=== PATIENT | female | born 1990 | race Caucasian/White ===

== ENCOUNTER 2023-06-09 20:08 | Emergency (ER) | payer MEDICAID, OTHER ==
[~2023-06-09] VITALS: Ht 172.7 cm; Wt 108.0 kg
[2023-06-09 20:55] LABS: BASO # 0.1 10^3/uL (0.0-0.2); BASO % 0.5 % (0.0-1.0); EOS # 0.1 10^3/uL (0.0-0.5); EOS % 0.7 % (0.0-3.0); HEMATOCRIT 36.8 % (36.0-47.0); HEMOGLOBIN 11.9 g/dl (12.0-15.5); LYMPH # 3.4 10^3/uL (1.5-5.0); LYMPH % 23.7 % (24.0-44.0); MEAN CORPUSCULAR HEMOGLOBIN 26.6 pg (27.0-33.0); MEAN CORPUSCULAR HGB CONC 32.3 g/dl (32.0-36.5); MEAN CORPUSCULAR VOLUME 82.3 fl (80.0-96.0); MONO # 0.7 10^3/uL (0.0-0.8); MONO % 4.9 % (2.0-8.0); NEUTROPHILS # 10.2 10^3/uL (1.5-8.5); NEUTROPHILS % 69.9 % (36.0-66.0); PLATELET COUNT, AUTOMATED 385 10^3/uL (150-450); RED BLOOD COUNT 4.47 10^6/uL (4.00-5.40); WHITE BLOOD COUNT 14.5 10^3/uL (4.0-10.0)
[2023-06-09 21:28] LABS: LIPASE 38 U/L (12-53)
[2023-06-09 21:30] LABS: ALKALINE PHOSPHATASE 100 U/L (46-116); ALT/SGPT 29 U/L (7.0-40); AST/SGOT 18 U/L (<34); BILIRUBIN,DIRECT 0.2 MG/DL (<0.4); BILIRUBIN,TOTAL 0.6 MG/DL (0.3-1.2); BLOOD UREA NITROGEN 18 MG/DL (9-23); CALCIUM LEVEL 9.3 MG/DL (8.5-10.1); CARBON DIOXIDE LEVEL 26 MMOL/L (20-31); CHLORIDE LEVEL 104 MMOL/L (98-107); CREATININE FOR GFR 0.88 MG/DL (0.55-1.30); GLOMERULAR FILTRATION RATE > 60.0 (>60); GLUCOSE, FASTING 89 MG/DL (60-100); POTASSIUM SERUM 3.8 MMOL/L (3.5-5.1); SODIUM LEVEL 139 MMOL/L (136-145); TOTAL PROTEIN 7.8 G/DL (5.7-8.2)
[2023-06-09 21:51] LABS: HCG, SERUM QUALITATIVE NEGATIVE (NEGATIVE)
[2023-06-09 22:26] VITALS: BP 159/72; TEMP 98; O2SAT 99
[2023-06-09] MEDS ORDERED: KETOROLAC 30 MG/ML 1ML VIAL IV ONE (22:30)
[2023-06-09] MEDS ORDERED: NS 1,000 ML IV ONE (22:30)
[2023-06-09] MEDS ORDERED: ISOVUE-370 76% 100ML VIAL As Ordered ONE (22:33)
[2023-06-10] MEDS ORDERED: DICY-61 PO (00:42)
== END 2023-06-10 01:13 | disposition home or self-care (01) ==
LOC: M ED 20:08
DX: K52.9 Noninfective gastroenteritis and colitis, unspecified (principal); I10 Essential (primary) hypertension; K57.30 Diverticulosis of large intestine without perforation or abscess without bleeding; N83.02 Follicular cyst of left ovary; K76.0 Fatty (change of) liver, not elsewhere classified; Z88.2 Allergy status to sulfonamides
CPT/HCPCS: 36415; 74177; 80048; 80076; 81001; 83690; 84703; 85025; 96361; 96374; 99284; J1885; Q9967

== ENCOUNTER 2023-07-15 08:47 | Inpatient (IN) | payer OTHER ==
[~2023-07-15] VITALS: Ht 172.7 cm; Wt 108.7 kg
[~2023-07-15 08:47] MED LIST: DICY-61 PO
[2023-07-15] MEDS ORDERED: ALPR0.5T3 PO (09:02)
[2023-07-15] MEDS ORDERED: TRI-TAB16 PO (09:02)
[2023-07-15] MEDS ORDERED: LISI20TA33 PO (09:02)
[2023-07-15 09:30] LABS: BASO % 0.3 % (0.0-1.0); HEMATOCRIT 39.8 % (36.0-47.0); LYMPH # 1.5 10^3/uL (1.5-5.0); LYMPH % 10.5 % (24.0-44.0); MEAN CORPUSCULAR HEMOGLOBIN 27.4 pg (27.0-33.0); MEAN CORPUSCULAR HGB CONC 32.7 g/dl (32.0-36.5); MEAN CORPUSCULAR VOLUME 83.8 fl (80.0-96.0); MONO # 0.2 10^3/uL (0.0-0.8); MONO % 1.5 % (2.0-8.0); NEUTROPHILS # 12.8 10^3/uL (1.5-8.5); NEUTROPHILS % 87.3 % (36.0-66.0); PLATELET COUNT, AUTOMATED 382 10^3/uL (150-450); RED BLOOD COUNT 4.75 10^6/uL (4.00-5.40); WHITE BLOOD COUNT 14.6 10^3/uL (4.0-10.0)
[2023-07-15 09:54] LABS: LIPASE 37 U/L (12-53)
[2023-07-15] MEDS ORDERED: NS 1,000 ML IV ONE ×2 (10:00→11:40)
[2023-07-15] MEDS ORDERED: ONDANSETRON 4MG 2ML VIAL IV ONE (10:00)
[2023-07-15] MEDS: MORPHINE 2 MG/ML 1ML VIAL IV PRN ×2 (10:02→11:08)
[2023-07-15 10:10] LABS: ALBUMIN 3.4 G/DL (3.2-5.2); ALKALINE PHOSPHATASE 74 U/L (46-116); ALT/SGPT 17 U/L (7.0-40); AST/SGOT 12 U/L (<34); BILIRUBIN,DIRECT 0.1 MG/DL (<0.4); BILIRUBIN,TOTAL 0.6 MG/DL (0.3-1.2); BLOOD UREA NITROGEN 18 MG/DL (9-23); CALCIUM LEVEL 8.6 MG/DL (8.5-10.1); CARBON DIOXIDE LEVEL 22 MMOL/L (20-31); CHLORIDE LEVEL 101 MMOL/L (98-107); CREATININE FOR GFR 0.76 MG/DL (0.55-1.30); GLOMERULAR FILTRATION RATE > 60.0 (>60); GLUCOSE, FASTING 132 MG/DL (60-100); HCG, SERUM QUALITATIVE NEGATIVE (NEGATIVE); POTASSIUM SERUM 4.7 MMOL/L (3.5-5.1); SODIUM LEVEL 135 MMOL/L (136-145); TOTAL PROTEIN 7.8 G/DL (5.7-8.2)
[2023-07-15] MEDS ORDERED: ISOVUE-370 76% 100ML VIAL As Ordered ONE (10:53)
[2023-07-15 10:56] LABS: RSV AMPLIFICATION NEGATIVE (NEGATIVE)
[2023-07-15] MEDS ORDERED: PIPERACILLIN/TAZOBACTAM SOD 4.5 GM in D5W MINI-BAG PLUS 50 ML IV ONE (11:40)
[2023-07-15] MEDS ORDERED: MORPHINE 4 MG/ML 1ML VIAL IV PRN (12:20)
[2023-07-15] MEDS ORDERED: ONDANSETRON 4MG 2ML VIAL IV PRN (12:20)
[2023-07-15] MEDS: KETOROLAC 30 MG/ML 1ML VIAL IV PRN ×2 (12:37→19:41)
[2023-07-15] MEDS ORDERED: MED REC IN PROGRESS XX SCH (12:50)
[2023-07-15] MEDS: ENOXAPARIN 40MG/0.4ML SYRINGE (J1650 PER 10MG) SC SCH (12:58)
[2023-07-15] MEDS ORDERED: MULT1TAB16 PO (13:13)
[2023-07-15] MEDS ORDERED: HOME MED LIST COMPLETE! XX SCH (13:30)
[2023-07-15] MEDS ORDERED: PANTOPRAZOLE 40MG VIAL IV SCH (14:00)
[2023-07-15 14:27] VITALS: BP 135/87; TEMP 98.1; O2SAT 100
[2023-07-15] MEDS: LR 1,000 ML IV SCH (14:46)
[2023-07-15] MEDS: PIPERACILLIN/TAZOBACTAM SOD 3.375 GM in D5W MINI-BAG PLUS 50 ML IV SCH (17:16)
[2023-07-15 20:56] VITALS: BP 137/84; TEMP 98.2; O2SAT 95
[2023-07-16] MEDS: PIPERACILLIN/TAZOBACTAM SOD 3.375 GM in D5W MINI-BAG PLUS 50 ML IV SCH ×2 (00:23→05:40)
[2023-07-16] MEDS: LR 1,000 ML IV SCH ×2 (03:30→08:20)
[2023-07-16 04:32] VITALS: BP 137/84; TEMP 97.7; O2SAT 98
[2023-07-16 05:19] LABS: BASO % 0.6 % (0.0-1.0); EOS # 0.2 10^3/uL (0.0-0.5); EOS % 2.6 % (0.0-3.0); HEMATOCRIT 32.5 % (36.0-47.0); LYMPH # 2.4 10^3/uL (1.5-5.0); LYMPH % 33.8 % (24.0-44.0); MEAN CORPUSCULAR HEMOGLOBIN 27.8 pg (27.0-33.0); MEAN CORPUSCULAR HGB CONC 31.7 g/dl (32.0-36.5); MEAN CORPUSCULAR VOLUME 87.6 fl (80.0-96.0); MONO # 0.4 10^3/uL (0.0-0.8); NEUTROPHILS # 4.1 10^3/uL (1.5-8.5); NEUTROPHILS % 56.9 % (36.0-66.0); RED BLOOD COUNT 3.71 10^6/uL (4.00-5.40); WHITE BLOOD COUNT 7.2 10^3/uL (4.0-10.0)
[2023-07-16 05:30] LABS: HEMOGLOBIN 10.3 g/dl (12.0-15.5); PLATELET COUNT, AUTOMATED 265 10^3/uL (150-450)
[2023-07-16 05:49] LABS: BLOOD UREA NITROGEN 15 MG/DL (9-23); CALCIUM LEVEL 8.1 MG/DL (8.5-10.1); CARBON DIOXIDE LEVEL 25 MMOL/L (20-31); CHLORIDE LEVEL 105 MMOL/L (98-107); CREATININE FOR GFR 0.92 MG/DL (0.55-1.30); GLOMERULAR FILTRATION RATE > 60.0 (>60); GLUCOSE, FASTING 109 MG/DL (60-100); SODIUM LEVEL 138 MMOL/L (136-145)
[2023-07-16] MEDS ORDERED: HOME MED LIST COMPLETE! XX SCH ×2 (07:50→08:15)
[2023-07-16] MEDS ORDERED: DICY1CAP8 PO (08:10)
[2023-07-16] MEDS ORDERED: DICY20TA20 PO (08:10)
[2023-07-16] MEDS ORDERED: DICY-61 PO (08:10)
[2023-07-16] MEDS: ENOXAPARIN 40MG/0.4ML SYRINGE (J1650 PER 10MG) SC SCH (09:00)
[2023-07-16] MEDS ORDERED: PANT40TA29 PO (10:54)
[2023-07-16] MEDS ORDERED: METR-265 PO (10:54)
[2023-07-16] MEDS ORDERED: CIPR-249 PO (10:54)
== END 2023-07-16 12:55 | disposition home or self-care (01) | DRG 247 ==
LOC: EDBD 08:47 → M ED 08:47 → M ED INP 12:26 → ENRESERV 13:14 → M MSPAV 14:18
PROVIDERS: ADMIT Internal Medicine Nephrology; ATTEND Internal Medicine Nephrology
DX: K56.609 Unspecified intestinal obstruction, unspecified as to partial versus complete obstruction (principal); I10 Essential (primary) hypertension; J45.909 Unspecified asthma, uncomplicated; F41.9 Anxiety disorder, unspecified; G43.909 Migraine, unspecified, not intractable, without status migrainosus; G47.33 Obstructive sleep apnea (adult) (pediatric); E66.9 Obesity, unspecified; Z88.2 Allergy status to sulfonamides; Z79.899 Other long term (current) drug therapy

== ENCOUNTER → 2023-07-18 | Outpatient (CLI) | payer OTHER ==
[~2023-07-18] MED LIST changes: +ALPR0.5T3 PO; +CIPR-249 PO; +DICY1CAP8 PO; +DICY20TA20 PO; +LISI20TA33 PO; +METR-265 PO; +MULT1TAB16 PO; +PANT40TA29 PO; +TRI-TAB16 PO
== END ==
LOC: M PLALAB 14:41
PROVIDERS: ATTEND Nurse Practitioner Family
DX: Z01.419 Encounter for gynecological examination (general) (routine) without abnormal findings (principal); R87.615 Unsatisfactory cytologic smear of cervix

== ENCOUNTER → 2023-07-25 | Outpatient (CLI) | payer OTHER | LOC: M WHC 16:00 | PROVIDERS: ATTEND Nurse Practitioner Family | DX: Z12.31 Encounter for screening mammogram for malignant neoplasm of breast (principal); Z80.3 Family history of malignant neoplasm of breast ==

== ENCOUNTER → 2023-07-25 | Outpatient (REF) | payer OTHER | LOC: M SFHCWAGY 17:36 | PROVIDERS: ATTEND Nurse Practitioner Family | DX: Z12.4 Encounter for screening for malignant neoplasm of cervix (principal) ==

== ENCOUNTER → 2023-07-28 | Outpatient (REF) | payer OTHER ==
[2023-07-28 17:07] LABS: BASO # 0.1 10^3/uL (0.0-0.2); BASO % 0.8 % (0.0-1.0); EOS # 0.2 10^3/uL (0.0-0.5); EOS % 2.7 % (0.0-3.0); HEMATOCRIT 38.1 % (36.0-47.0); HEMOGLOBIN 11.9 g/dl (12.0-15.5); LYMPH # 2.4 10^3/uL (1.5-5.0); LYMPH % 26.4 % (24.0-44.0); MEAN CORPUSCULAR HEMOGLOBIN 27.1 pg (27.0-33.0); MEAN CORPUSCULAR HGB CONC 31.2 g/dl (32.0-36.5); MEAN CORPUSCULAR VOLUME 86.8 fl (80.0-96.0); MONO # 0.5 10^3/uL (0.0-0.8); MONO % 5.7 % (2.0-8.0); NEUTROPHILS # 5.7 10^3/uL (1.5-8.5); NEUTROPHILS % 63.8 % (36.0-66.0); PLATELET COUNT, AUTOMATED 343 10^3/uL (150-450); RED BLOOD COUNT 4.39 10^6/uL (4.00-5.40)
== END ==
LOC: M LAB REF 16:19
PROVIDERS: ATTEND Family Medicine Addiction Medicine
DX: D50.9 Iron deficiency anemia, unspecified (principal)

== ENCOUNTER → 2023-08-01 | Outpatient (REF) | payer OTHER ==
[2023-08-01 14:14] LABS: THYROID STIMULATING HORMONE 0.694 uIU/ML (0.55-4.78)
[2023-08-01 14:16] LABS: ALBUMIN 3.5 G/DL (3.2-5.2); ALKALINE PHOSPHATASE 69 U/L (46-116); ALT/SGPT 22 U/L (7.0-40); AST/SGOT 18 U/L (<34); BILIRUBIN,TOTAL 0.4 MG/DL (0.3-1.2); BLOOD UREA NITROGEN 13 MG/DL (9-23); CALCIUM LEVEL 9.3 MG/DL (8.5-10.1); CARBON DIOXIDE LEVEL 29 MMOL/L (20-31); CHLORIDE LEVEL 102 MMOL/L (98-107); CHOLESTEROL LEVEL 211 MG/DL (<200); CHOLESTEROL RISK RATIO 4.19 (<5); CREATININE FOR GFR 0.78 MG/DL (0.55-1.30); GLOMERULAR FILTRATION RATE > 60.0 (>60); GLUCOSE, FASTING 94 MG/DL (60-100); HDL CHOLESTEROL 50.3 MG/DL (>40); LDL CHOLESTEROL 121.5 MG/DL (<100); NON-HDL-C 160.7 MG/DL; POTASSIUM SERUM 4.6 MMOL/L (3.5-5.1); SODIUM LEVEL 138 MMOL/L (136-145); TOTAL PROTEIN 7.7 G/DL (5.7-8.2); TRIGLYCERIDES LEVEL 196 MG/DL (<150)
== END ==
LOC: M LAB REF 11:38
PROVIDERS: ATTEND Family Medicine Addiction Medicine
DX: I10 Essential (primary) hypertension (principal)

== ENCOUNTER → 2023-08-02 | Outpatient (CLI) | payer OTHER | LOC: M RAD 09:12 | PROVIDERS: ATTEND Family Medicine Addiction Medicine | DX: R05.3 Chronic cough (principal) ==

== ENCOUNTER → 2023-08-22 | Outpatient (CLI) | payer OTHER ==
[~2023-08-22] MED LIST changes: +ALBU8.5H; +VANC125C3 PO
== END ==
LOC: M PLAIMG 09:31
PROVIDERS: ATTEND Family Medicine Addiction Medicine
DX: S09.90XA Unspecified injury of head, initial encounter (principal); X58.XXXA Exposure to other specified factors, initial encounter; Y92.9 Unspecified place or not applicable; Y93.9 Activity, unspecified; Y99.9 Unspecified external cause status

== ENCOUNTER 2023-09-04 09:11 | Emergency (ER) | payer OTHER ==
[~2023-09-04] VITALS: Ht 172.7 cm; Wt 105.6 kg
[2023-09-04 09:12] VITALS: TEMP 97.6
[2023-09-04 10:13] LABS: BASO # 0.1 10^3/uL (0.0-0.2); BASO % 0.4 % (0.0-1.0); EOS # 0.2 10^3/uL (0.0-0.5); EOS % 1.1 % (0.0-3.0); HEMATOCRIT 37.7 % (36.0-47.0); HEMOGLOBIN 12.2 g/dl (12.0-15.5); LYMPH # 2.3 10^3/uL (1.5-5.0); MEAN CORPUSCULAR HGB CONC 32.4 g/dl (32.0-36.5); MEAN CORPUSCULAR VOLUME 86.7 fl (80.0-96.0); MONO # 0.6 10^3/uL (0.0-0.8); MONO % 3.7 % (2.0-8.0); NEUTROPHILS % 79.5 % (36.0-66.0); PLATELET COUNT, AUTOMATED 362 10^3/uL (150-450); RED BLOOD COUNT 4.35 10^6/uL (4.00-5.40); WHITE BLOOD COUNT 15.1 10^3/uL (4.0-10.0)
[2023-09-04 10:33] LABS: INR 1.02; PROTHROMBIN TIME 13.1 SECONDS (12.5-14.5)
[2023-09-04 10:34] LABS: PARTIAL THROMBOPLASTIN TIME 27.8 SECONDS (24.8-34.2)
[2023-09-04] MEDS ORDERED: ONDANSETRON 4MG 2ML VIAL IV ONE ×2 (10:45→16:50)
[2023-09-04] MEDS ORDERED: NS 1,000 ML IV ONE ×2 (10:45→13:45)
[2023-09-04 10:49] LABS: RSV AMPLIFICATION NEGATIVE (NEGATIVE)
[2023-09-04] MEDS ORDERED: VANCOMYCIN ORAL SOL 250MG/5ML ORAL SYRINGE PO ONE (12:00)
[2023-09-04] MEDS ORDERED: ISOVUE-370 76% 100ML VIAL As Ordered ONE (13:48)
[2023-09-04] MEDS: MORPHINE 2 MG/ML 1ML VIAL IV PRN ×2 (14:18→16:59)
[2023-09-04] MEDS ORDERED: PERC5TAB12 PO (19:05)
[2023-09-04] MEDS ORDERED: VANC125C3 PO (19:05)
[2023-09-04] MEDS ORDERED: ONDA4TAB6 PO (19:05)
[2023-09-04 19:28] VITALS: BP 141/79; O2SAT 98
[2023-09-05 10:02] LABS: BLOOD UREA NITROGEN 12 MG/DL (7-21); CALCIUM LEVEL 9.9 MG/DL (8.4-10.2); CARBON DIOXIDE LEVEL 21 MEQ/L (22-30); CHLORIDE LEVEL 100 MEQ/L (98-107); CREATININE FOR GFR 0.7 MG/DL (0.7-1.5); GLOMERULAR FILTRATION RATE > 60.0 (>60); GLUCOSE, FASTING 100 MG/DL (70-99); POTASSIUM SERUM 4.6 MEQ/L (3.6-5.0); SODIUM LEVEL 135 MEQ/L (134-153)
[2023-09-05 10:03] LABS: ALBUMIN 4.4 G/DL (3.9-5.0); ALKALINE PHOSPHATASE 82 U/L (35-104); ALT/SGPT 16 U/L (1-33); AST/SGOT 21 U/L (5-40); BILIRUBIN,DIRECT < 0.2 MG/DL (0.1-0.4); BILIRUBIN,TOTAL < 0.7 MG/DL (0.2-1.3); LIPASE 38 U/L (13-60)
== END 2023-09-04 19:30 | disposition home or self-care (01) ==
LOC: M ED 09:11
DX: K52.21 Food protein-induced enterocolitis syndrome (principal); I10 Essential (primary) hypertension; K21.9 Gastro-esophageal reflux disease without esophagitis; Z87.19 Personal history of other diseases of the digestive system; Z88.2 Allergy status to sulfonamides; Z79.52 Long term (current) use of systemic steroids; Z79.811 Long term (current) use of aromatase inhibitors; Z79.899 Other long term (current) drug therapy
CPT/HCPCS: 74177; 80047; 80048; 80076; 83605; 83690; 84702; 85025; 85610; 85730; 87507; 87631; 93041; 96361; 96374; 96375; 96376; 99285; J2405; Q9967

== ENCOUNTER 2023-09-15 07:26 | Day surgery (SDC) | payer OTHER ==
[~2023-09-15] VITALS: Ht 172.7 cm; Wt 103.1 kg
[~2023-09-15 07:26] MED LIST changes: +NS 1,000 ML IV ONE; +ONDA4TAB6 PO; +PERC5TAB12 PO; +fentaNYL 100 MCG/2 ML INJECTION As Ordered ONE; +propofoL 200 MG/20 ML VIAL As Ordered ONE
[2023-09-15] MEDS ORDERED: LIDOCAINE 2% 100MG/5ML SDV (FOR ANES.) As Ordered ONE (08:33)
[2023-09-15] MEDS ORDERED: propofoL 200 MG/20 ML VIAL As Ordered ONE (08:51)
[2023-09-15 09:07] VITALS: TEMP 97.2
[2023-09-15 09:29] VITALS: BP 129/75; O2SAT 98
== END 2023-09-15 09:37 | disposition home or self-care (01) ==
LOC: M OPP 07:26
PROVIDERS: ATTEND Surgery
DX: K63.5 Polyp of colon (principal); K64.1 Second degree hemorrhoids; D50.9 Iron deficiency anemia, unspecified; K29.70 Gastritis, unspecified, without bleeding; K31.89 Other diseases of stomach and duodenum; Z79.2 Long term (current) use of antibiotics; Z79.51 Long term (current) use of inhaled steroids; Z79.83 Long term (current) use of bisphosphonates; Z79.891 Long term (current) use of opiate analgesic; Z79.899 Other long term (current) drug therapy; Z88.2 Allergy status to sulfonamides
CPT/HCPCS: 43239; 45380; 88305; J3010

== ENCOUNTER 2023-10-29 22:01 | Emergency (ER) | payer OTHER ==
[~2023-10-29] VITALS: Ht 172.7 cm; Wt 102.0 kg
[~2023-10-29 22:01] MED LIST changes: -NS 1,000 ML IV ONE; -fentaNYL 100 MCG/2 ML INJECTION As Ordered ONE; -propofoL 200 MG/20 ML VIAL As Ordered ONE
[2023-10-29 22:16] VITALS: TEMP 99.6
[2023-10-29] MEDS ORDERED: METOCLOPRAMIDE INJ 10MG/2ML VIAL IV ONE (23:00)
[2023-10-29] MEDS ORDERED: NS 1,000 ML IV SCH (23:00)
[2023-10-29 23:02] LABS: BASO # 0.1 10^3/uL (0.0-0.2); BASO % 0.4 % (0.0-1.0); EOS # 0.1 10^3/uL (0.0-0.5); EOS % 0.9 % (0.0-3.0); HEMATOCRIT 35.2 % (36.0-47.0); LYMPH # 3.8 10^3/uL (1.5-5.0); LYMPH % 25.1 % (24.0-44.0); MEAN CORPUSCULAR HEMOGLOBIN 28.6 pg (27.0-33.0); MEAN CORPUSCULAR HGB CONC 34.1 g/dl (32.0-36.5); MONO # 0.8 10^3/uL (0.0-0.8); MONO % 5.3 % (2.0-8.0); NEUTROPHILS # 10.2 10^3/uL (1.5-8.5); NEUTROPHILS % 67.8 % (36.0-66.0); PLATELET COUNT, AUTOMATED 344 10^3/uL (150-450); RED BLOOD COUNT 4.19 10^6/uL (4.00-5.40)
[2023-10-29 23:03] LABS: LIPASE 43 U/L (12-53)
[2023-10-29 23:05] LABS: ALBUMIN 3.3 G/DL (3.2-5.2); ALKALINE PHOSPHATASE 68 U/L (46-116); ALT/SGPT 17 U/L (7.0-40); AST/SGOT 14 U/L (<34); BILIRUBIN,DIRECT < 0.1 MG/DL (<0.4); BILIRUBIN,TOTAL 0.2 MG/DL (0.3-1.2); BLOOD UREA NITROGEN 14 MG/DL (9-23); CALCIUM LEVEL 9.2 MG/DL (8.5-10.1); CARBON DIOXIDE LEVEL 19 MMOL/L (20-31); CHLORIDE LEVEL 105 MMOL/L (98-107); GLOMERULAR FILTRATION RATE > 60.0 (>60); GLUCOSE, FASTING 128 MG/DL (60-100); POTASSIUM SERUM 3.6 MMOL/L (3.5-5.1); SODIUM LEVEL 136 MMOL/L (136-145); TOTAL PROTEIN 7.1 G/DL (5.7-8.2)
[2023-10-29 23:12] LABS: HCG, SERUM QUALITATIVE NEGATIVE (NEGATIVE)
[2023-10-29] MEDS ORDERED: ISOVUE-370 76% 100ML VIAL As Ordered ONE (23:23)
[2023-10-30] MEDS ORDERED: DIFI200T PO (00:01)
[2023-10-30] MEDS ORDERED: ONDA4TAB6 PO (00:01)
[2023-10-30] MEDS ORDERED: HYDR-3713 PO (00:01)
[2023-10-30] MEDS ORDERED: CVS1CAP2 PO (00:03)
[2023-10-30] MEDS ORDERED: PRED20TA PO (02:08)
[2023-10-30] MEDS ORDERED: methylPREDNISolone 125MG 2ML VIAL IV ONE (02:10)
[2023-10-30 02:20] VITALS: BP 131/78; O2SAT 100
== END 2023-10-30 02:23 | disposition home or self-care (01) ==
LOC: EDBD 22:01 → M ED 22:01
DX: A08.39 Other viral enteritis (principal); J45.909 Unspecified asthma, uncomplicated; I10 Essential (primary) hypertension; F41.9 Anxiety disorder, unspecified; Z88.2 Allergy status to sulfonamides; Z79.52 Long term (current) use of systemic steroids; Z79.811 Long term (current) use of aromatase inhibitors; Z79.899 Other long term (current) drug therapy
CPT/HCPCS: 74177; 80048; 80076; 83605; 83690; 84703; 85025; 87040; 87486; 87507; 87581; 87633; 87798; 93041; 96361; 96374; 96375; 99285; J2765; J2930; Q9967

== ENCOUNTER → 2023-11-01 | Outpatient (CLI) | payer OTHER ==
[~2023-11-01] MED LIST changes: +CVS1CAP2 PO; +DIFI200T PO; +HYDR-3713 PO; +PRED20TA PO
== END ==
LOC: M SLEEP HO 10:54
PROVIDERS: ATTEND Nurse Practitioner Family
DX: G47.33 Obstructive sleep apnea (adult) (pediatric) (principal)

== ENCOUNTER 2023-12-03 06:38 | Emergency (ER) | payer OTHER ==
[~2023-12-03] VITALS: Ht 172.7 cm; Wt 100.8 kg
[2023-12-03] MEDS ORDERED: NS 1,000 ML IV ONE (08:50)
[2023-12-03] MEDS ORDERED: ONDANSETRON 4MG 2ML VIAL IV ONE (08:50)
[2023-12-03] MEDS ORDERED: MORPHINE 4 MG/ML 1ML VIAL IV ONE (09:10)
[2023-12-03 09:12] LABS: BASO % 0.3 % (0.0-1.0); EOS % 0.1 % (0.0-3.0); HEMATOCRIT 41.5 % (36.0-47.0); HEMOGLOBIN 13.7 g/dl (12.0-15.5); LYMPH # 1.1 10^3/uL (1.5-5.0); LYMPH % 9.8 % (24.0-44.0); MEAN CORPUSCULAR HEMOGLOBIN 28.5 pg (27.0-33.0); MEAN CORPUSCULAR VOLUME 86.5 fl (80.0-96.0); MONO # 0.4 10^3/uL (0.0-0.8); MONO % 3.1 % (2.0-8.0); NEUTROPHILS # 9.7 10^3/uL (1.5-8.5); NEUTROPHILS % 86.4 % (36.0-66.0); PLATELET COUNT, AUTOMATED 477 10^3/uL (150-450); WHITE BLOOD COUNT 11.2 10^3/uL (4.0-10.0)
[2023-12-03 09:32] LABS: LIPASE 36 U/L (12-53)
[2023-12-03 09:34] LABS: ALBUMIN 3.4 G/DL (3.2-5.2); ALKALINE PHOSPHATASE 69 U/L (46-116); ALT/SGPT 24 U/L (7.0-40); AST/SGOT 15 U/L (<34); BILIRUBIN,DIRECT 0.1 MG/DL (<0.4); BILIRUBIN,TOTAL 0.4 MG/DL (0.3-1.2); HCG, SERUM QUALITATIVE NEGATIVE (NEGATIVE); TOTAL PROTEIN 7.3 G/DL (5.7-8.2)
[2023-12-03] MEDS ORDERED: methylPREDNISolone 125MG 2ML VIAL IV ONE (10:05)
[2023-12-03 10:31] LABS: ERYTHROCYTE SEDIMENTATION RATE 30 mm/hr (0-20)
[2023-12-03 10:31] LABS: HEMOGLOBIN A1c 5.4 % (4.0-6.0)
[2023-12-03] MEDS ORDERED: PRED20TA PO (10:59)
[2023-12-03 11:08] VITALS: BP 131/74; TEMP 96.7; O2SAT 100
== END 2023-12-03 11:10 | disposition home or self-care (01) ==
LOC: M ED 06:38
DX: A08.39 Other viral enteritis (principal); I10 Essential (primary) hypertension; F41.9 Anxiety disorder, unspecified; J45.909 Unspecified asthma, uncomplicated; K76.0 Fatty (change of) liver, not elsewhere classified; Z87.891 Personal history of nicotine dependence; Z88.2 Allergy status to sulfonamides; Z79.52 Long term (current) use of systemic steroids; Z79.811 Long term (current) use of aromatase inhibitors; Z79.83 Long term (current) use of bisphosphonates; Z79.899 Other long term (current) drug therapy
CPT/HCPCS: 74021; 80047; 80076; 83036; 83605; 83690; 84702; 84703; 85025; 85652; 86140; 96374; 96375; 99284; J2405; J2930

== ENCOUNTER 2023-12-29 12:01 | Emergency (ER) | payer OTHER ==
[~2023-12-29] VITALS: Ht 172.7 cm; Wt 100.0 kg
[2023-12-29] MEDS ORDERED: NAPR-837 PO (14:54)
[2023-12-29 15:09] VITALS: BP 147/77; TEMP 97.2; O2SAT 100
== END 2023-12-29 15:11 | disposition home or self-care (01) ==
LOC: M ED 12:01
DX: S83.411A Sprain of medial collateral ligament of right knee, initial encounter (principal); F41.9 Anxiety disorder, unspecified; J45.909 Unspecified asthma, uncomplicated; I10 Essential (primary) hypertension; Z79.52 Long term (current) use of systemic steroids; Z79.83 Long term (current) use of bisphosphonates; Z79.811 Long term (current) use of aromatase inhibitors; Z79.899 Other long term (current) drug therapy; Z88.2 Allergy status to sulfonamides; Y92.9 Unspecified place or not applicable; Y93.89 Activity, other specified; Y99.9 Unspecified external cause status

== ENCOUNTER → 2024-01-02 | Outpatient (REF) | payer OTHER ==
[~2024-01-02] MED LIST changes: +NAPR-837 PO
== END ==
LOC: M LAB REF 12:26
PROVIDERS: ATTEND Internal Medicine Gastroenterology
DX: K56.1 Intussusception (principal)

== ENCOUNTER → 2024-01-05 | Outpatient (CLI) | payer OTHER | LOC: M LAB 11:07 | PROVIDERS: ATTEND Internal Medicine Gastroenterology | DX: R93.3 Abnormal findings on diagnostic imaging of other parts of digestive tract (principal) ==

== ENCOUNTER → 2024-01-18 | Outpatient (CLI) | payer OTHER | LOC: M PLARAD 14:56 | PROVIDERS: ATTEND Physician Assistant | DX: M25.561 Pain in right knee (principal); I83.91 Asymptomatic varicose veins of right lower extremity ==

== ENCOUNTER → 2024-02-06 | Outpatient (CLI) | payer OTHER ==
[~2024-02-06] MED LIST changes: +E-Z-PAQUE 96% w/w SUSP 176GM BTL As Ordered ONE
== END ==
LOC: M RAD 09:03
PROVIDERS: ATTEND Internal Medicine Gastroenterology
DX: R93.3 Abnormal findings on diagnostic imaging of other parts of digestive tract (principal)

== ENCOUNTER 2024-03-12 11:49 | Day surgery (SDC) | payer OTHER ==
[~2024-03-12] VITALS: Ht 172.7 cm; Wt 99.3 kg
[~2024-03-12 11:49] MED LIST changes: -E-Z-PAQUE 96% w/w SUSP 176GM BTL As Ordered ONE; +NS 1,000 ML IV ONE
[2024-03-12] MEDS: KETOROLAC 30 MG/ML 1ML VIAL IV ONE (15:05)
[2024-03-12] MEDS ORDERED: propofoL 200 MG/20 ML VIAL As Ordered ONE (15:44)
[2024-03-12 16:11] VITALS: TEMP 98.5
[2024-03-12 16:28] VITALS: BP 146/82; O2SAT 98
== END 2024-03-12 16:35 | disposition home or self-care (01) ==
LOC: M OPP 11:49
PROVIDERS: ATTEND Internal Medicine Gastroenterology
DX: K52.9 Noninfective gastroenteritis and colitis, unspecified (principal); K57.30 Diverticulosis of large intestine without perforation or abscess without bleeding; K21.9 Gastro-esophageal reflux disease without esophagitis; R93.3 Abnormal findings on diagnostic imaging of other parts of digestive tract; I10 Essential (primary) hypertension; G47.30 Sleep apnea, unspecified; Z79.899 Other long term (current) drug therapy; Z88.2 Allergy status to sulfonamides; J45.909 Unspecified asthma, uncomplicated
CPT/HCPCS: 45380; 88305; J1885

== ENCOUNTER 2024-03-29 22:30 | Emergency (ER) | payer MEDICAID, OTHER ==
[~2024-03-29 22:30] MED LIST changes: -NS 1,000 ML IV ONE
== END 2024-03-29 22:40 | disposition left against medical advice (07) ==
LOC: M ED 22:30
DX: Z53.21 Procedure and treatment not carried out due to patient leaving prior to being seen by health care provider (principal)

== ENCOUNTER → 2024-04-06 | Outpatient (CLI) | payer OTHER ==
[2024-04-06 09:29] LABS: BASO # 0.1 10^3/uL (0.0-0.2); BASO % 0.8 % (0.0-1.0); EOS # 0.2 10^3/uL (0.0-0.5); EOS % 2.5 % (0.0-3.0); HEMATOCRIT 34.7 % (36.0-47.0); HEMOGLOBIN 10.8 g/dl (12.0-15.5); LYMPH # 3.1 10^3/uL (1.5-5.0); LYMPH % 36.1 % (24.0-44.0); MEAN CORPUSCULAR HEMOGLOBIN 26.7 pg (27.0-33.0); MEAN CORPUSCULAR HGB CONC 31.1 g/dl (32.0-36.5); MEAN CORPUSCULAR VOLUME 85.7 fl (80.0-96.0); MONO # 0.5 10^3/uL (0.0-0.8); MONO % 5.8 % (2.0-8.0); NEUTROPHILS # 4.7 10^3/uL (1.5-8.5); NEUTROPHILS % 54.2 % (36.0-66.0); PLATELET COUNT, AUTOMATED 370 10^3/uL (150-450); RED BLOOD COUNT 4.05 10^6/uL (4.00-5.40); WHITE BLOOD COUNT 8.7 10^3/uL (4.0-10.0)
[2024-04-06 09:49] LABS: ALBUMIN 3.4 G/DL (3.2-5.2); ALKALINE PHOSPHATASE 81 U/L (46-116); ALT/SGPT 17 U/L (7.0-40); AST/SGOT 11 U/L (<34); BILIRUBIN,TOTAL 0.3 MG/DL (0.3-1.2); BLOOD UREA NITROGEN 18 MG/DL (9-23); CALCIUM LEVEL 8.9 MG/DL (8.5-10.1); CARBON DIOXIDE LEVEL 29 MMOL/L (20-31); CHLORIDE LEVEL 107 MMOL/L (98-107); CHOLESTEROL LEVEL 194 MG/DL (<200); CHOLESTEROL RISK RATIO 3.75 (<5); CREATININE FOR GFR 0.84 MG/DL (0.55-1.30); GLOMERULAR FILTRATION RATE > 60.0 (>60); GLUCOSE, FASTING 84 MG/DL (60-100); HDL CHOLESTEROL 51.7 MG/DL (>40); IRON (FE) 42 UG/DL (50-170); LDL CHOLESTEROL 115.5 MG/DL (<100); NON-HDL-C 142.3 MG/DL; PERCENT SATURATION 10.3 % (13.2-45.0); POTASSIUM SERUM 4.6 MMOL/L (3.5-5.1); SODIUM LEVEL 141 MMOL/L (136-145); TOTAL IRON BINDING CAPACITY 409 UG/DL (250-425); TOTAL PROTEIN 7.4 G/DL (5.7-8.2); TRIGLYCERIDES LEVEL 134 MG/DL (<150)
[2024-04-06 09:52] LABS: FREE T4 1.06 NG/DL (0.89-1.76); THYROID STIMULATING HORMONE 1.044 uIU/ML (0.55-4.78)
[2024-04-06 09:53] LABS: FERRITIN 22.4 NG/ML (7.3-270.7); TOTAL 25(OH) VITAMIN D 43.4 NG/ML (20.0-100.0)
[2024-04-06 09:54] LABS: FOLATE > 24.00 NG/ML (>5.4); VITAMIN B12 LEVEL 532 PG/ML (211-911)
== END ==
LOC: M LAB 08:07
PROVIDERS: ATTEND Registered Nurse
DX: Z01.812 Encounter for preprocedural laboratory examination (principal); Z13.220 Encounter for screening for lipoid disorders; D51.9 Vitamin B12 deficiency anemia, unspecified; E55.9 Vitamin D deficiency, unspecified; E66.01 Morbid (severe) obesity due to excess calories

== ENCOUNTER → 2024-04-18 | Outpatient (REF) | payer OTHER, MEDICAID ==
[~2024-04-18] MED LIST changes: +ONDA-282 PO; -ONDA4TAB6 PO
[2024-04-18 19:21] LABS: Trichomonas vaginalis (AMP) NOT DETECTED (NEGATIVE)
[2024-04-18 19:45] LABS: GC DNA AMPLIFICATION NEGATIVE (NEGATIVE)
== END ==
LOC: M SFHCWAGY 17:14
PROVIDERS: ATTEND Nurse Practitioner Family
DX: Z11.3 Encounter for screening for infections with a predominantly sexual mode of transmission (principal)

== ENCOUNTER 2024-05-10 03:56 | Emergency (ER) | payer MEDICAID, OTHER ==
[~2024-05-10] VITALS: Ht 172.7 cm; Wt 103.7 kg
[2024-05-10 05:39] LABS: BASO % 0.3 % (0.0-1.0); EOS # 0.1 10^3/uL (0.0-0.5); EOS % 0.9 % (0.0-3.0); HEMATOCRIT 38.3 % (36.0-47.0); HEMOGLOBIN 12.6 g/dl (12.0-15.5); LYMPH # 2.4 10^3/uL (1.5-5.0); LYMPH % 20.8 % (24.0-44.0); MEAN CORPUSCULAR HEMOGLOBIN 27.1 pg (27.0-33.0); MEAN CORPUSCULAR HGB CONC 32.9 g/dl (32.0-36.5); MEAN CORPUSCULAR VOLUME 82.4 fl (80.0-96.0); MONO # 0.4 10^3/uL (0.0-0.8); MONO % 3.8 % (2.0-8.0); NEUTROPHILS # 8.5 10^3/uL (1.5-8.5); NEUTROPHILS % 73.9 % (36.0-66.0); PLATELET COUNT, AUTOMATED 388 10^3/uL (150-450); RED BLOOD COUNT 4.65 10^6/uL (4.00-5.40); WHITE BLOOD COUNT 11.5 10^3/uL (4.0-10.0)
[2024-05-10 06:11] LABS: LIPASE 47 U/L (12-53)
[2024-05-10 06:13] LABS: ALBUMIN 3.3 G/DL (3.2-5.2); ALKALINE PHOSPHATASE 78 U/L (46-116); ALT/SGPT 20 U/L (7.0-40); AST/SGOT 15 U/L (<34); BILIRUBIN,DIRECT < 0.1 MG/DL (<0.4); BILIRUBIN,TOTAL 0.4 MG/DL (0.3-1.2); BLOOD UREA NITROGEN 17 MG/DL (9-23); CALCIUM LEVEL 9.4 MG/DL (8.5-10.1); CARBON DIOXIDE LEVEL 23 MMOL/L (20-31); CHLORIDE LEVEL 105 MMOL/L (98-107); CREATININE FOR GFR 0.78 MG/DL (0.55-1.30); GLOMERULAR FILTRATION RATE > 60.0 (>60); GLUCOSE, FASTING 126 MG/DL (60-100); SODIUM LEVEL 136 MMOL/L (136-145); TOTAL PROTEIN 7.7 G/DL (5.7-8.2)
[2024-05-10] MEDS: KETOROLAC 30 MG/ML 1ML VIAL IV ONE (06:24)
[2024-05-10] MEDS ORDERED: ISOVUE-370 76% 100ML VIAL As Ordered ONE (07:45)
[2024-05-10] MEDS ORDERED: ONDA-282 PO (08:24)
[2024-05-10 08:43] VITALS: BP 144/87; TEMP 98.1; O2SAT 99
[2024-05-11] MEDS ORDERED: PRED20TA PO (07:09)
== END 2024-05-10 08:45 | disposition home or self-care (01) ==
LOC: M ED 03:56
DX: K52.9 Noninfective gastroenteritis and colitis, unspecified (principal); K57.30 Diverticulosis of large intestine without perforation or abscess without bleeding; N83.291 Other ovarian cyst, right side; D84.1 Defects in the complement system; I10 Essential (primary) hypertension; Z88.2 Allergy status to sulfonamides; Z90.49 Acquired absence of other specified parts of digestive tract
CPT/HCPCS: 74177; 80048; 80076; 83690; 85025; 86160; 96374; 99284; J1885; Q9967

== ENCOUNTER → 2024-05-10 | Outpatient (REF) | payer OTHER | LOC: M LAB REF 11:32 | PROVIDERS: ATTEND Internal Medicine Gastroenterology | DX: D84.1 Defects in the complement system (principal) ==

== ENCOUNTER 2024-05-11 02:29 | Emergency (ER) | payer OTHER ==
[~2024-05-11] VITALS: Ht 172.7 cm; Wt 104.5 kg
[2024-05-11 03:51] LABS: BASO # 0.1 10^3/uL (0.0-0.2); BASO % 0.4 % (0.0-1.0); EOS # 0.1 10^3/uL (0.0-0.5); EOS % 0.5 % (0.0-3.0); HEMATOCRIT 41.1 % (36.0-47.0); HEMOGLOBIN 13.2 g/dl (12.0-15.5); LYMPH # 2.7 10^3/uL (1.5-5.0); LYMPH % 16.5 % (24.0-44.0); MEAN CORPUSCULAR HEMOGLOBIN 27.3 pg (27.0-33.0); MEAN CORPUSCULAR HGB CONC 32.1 g/dl (32.0-36.5); MEAN CORPUSCULAR VOLUME 85.1 fl (80.0-96.0); MONO # 0.7 10^3/uL (0.0-0.8); MONO % 4.3 % (2.0-8.0); NEUTROPHILS # 12.8 10^3/uL (1.5-8.5); NEUTROPHILS % 77.8 % (36.0-66.0); PLATELET COUNT, AUTOMATED 402 10^3/uL (150-450); RED BLOOD COUNT 4.83 10^6/uL (4.00-5.40); WHITE BLOOD COUNT 16.4 10^3/uL (4.0-10.0)
[2024-05-11 04:24] LABS: LIPASE 34 U/L (12-53)
[2024-05-11 04:27] LABS: ALBUMIN 3.2 G/DL (3.2-5.2); ALKALINE PHOSPHATASE 80 U/L (46-116); ALT/SGPT 21 U/L (7.0-40); AST/SGOT 17 U/L (<34); BILIRUBIN,DIRECT 0.2 MG/DL (<0.4); BILIRUBIN,TOTAL 0.8 MG/DL (0.3-1.2); BLOOD UREA NITROGEN 19 MG/DL (9-23); CARBON DIOXIDE LEVEL 26 MMOL/L (20-31); CHLORIDE LEVEL 106 MMOL/L (98-107); CREATININE FOR GFR 0.88 MG/DL (0.55-1.30); GLOMERULAR FILTRATION RATE > 60.0 (>60); GLUCOSE, FASTING 157 MG/DL (60-100); POTASSIUM SERUM 4.4 MMOL/L (3.5-5.1); SODIUM LEVEL 138 MMOL/L (136-145); TOTAL PROTEIN 7.3 G/DL (5.7-8.2)
[2024-05-11] MEDS: methylPREDNISolone 125MG 2ML VIAL IV ONE (06:59)
[2024-05-11] MEDS ORDERED: PRED20TA PO (07:09)
[2024-05-11 07:31] VITALS: BP 131/77; TEMP 98; O2SAT 100
== END 2024-05-11 07:31 | disposition home or self-care (01) ==
LOC: EDBD 02:29 → M ED 02:29
DX: K52.9 Noninfective gastroenteritis and colitis, unspecified (principal); D72.829 Elevated white blood cell count, unspecified; K21.9 Gastro-esophageal reflux disease without esophagitis; I10 Essential (primary) hypertension; Z88.2 Allergy status to sulfonamides; Z79.811 Long term (current) use of aromatase inhibitors; Z79.52 Long term (current) use of systemic steroids; Z79.899 Other long term (current) drug therapy
CPT/HCPCS: 80053; 82248; 83690; 85025; 87507; 96374; 99284; J2919

== ENCOUNTER 2024-06-24 22:46 | Emergency (ER) | payer MEDICAID, OTHER ==
[~2024-06-24] VITALS: Ht 172.7 cm; Wt 103.4 kg
[2024-06-24 23:22] LABS: APPEARANCE, URINE HAZY (CLEAR); BACTERIA, URINE AUTO NEGATIVE (NEGATIVE); BILIRUBIN, URINE AUTO NEGATIVE (NEGATIVE); BLOOD, URINE BLOOD NEGATIVE (NEGATIVE); COLOR, URINE YELLOW (YELLOW); GLUCOSE, URINE (UA) AUTO NEGATIVE (NEGATIVE); KETONE, URINE AUTO TRACE mg/dL (NEGATIVE); LEUKOCYTE ESTERASE, URINE AUTO 2+ (NEGATIVE); MUCUS, URINE SMALL (NEGATIVE); NITRITE, URINE AUTO NEGATIVE (NEGATIVE); PROTEIN, URINE AUTO 2+ mg/dL (NEGATIVE); RBC, URINE AUTO 2 /HPF (0-3); SPECIFIC GRAVITY URINE AUTO 1.016 (1.002-1.035); SQUAMOUS EPITHELIAL CELL UR AU 13 /HPF (0-6); UROBILINOGEN, URINE AUTO 0.2 mg/dL (0.0-2.0); WBC, URINE AUTO 14 /HPF (0-3)
[2024-06-25 02:56] LABS: BASO # 0.1 10^3/uL (0.0-0.2); BASO % 0.4 % (0.0-1.0); EOS % 0.1 % (0.0-3.0); HEMATOCRIT 40.9 % (36.0-47.0); HEMOGLOBIN 13.4 g/dl (12.0-15.5); LYMPH # 1.9 10^3/uL (1.5-5.0); LYMPH % 10.7 % (24.0-44.0); MEAN CORPUSCULAR HEMOGLOBIN 27.6 pg (27.0-33.0); MEAN CORPUSCULAR HGB CONC 32.8 g/dl (32.0-36.5); MEAN CORPUSCULAR VOLUME 84.2 fl (80.0-96.0); MONO # 0.6 10^3/uL (0.0-0.8); NEUTROPHILS # 15.4 10^3/uL (1.5-8.5); NEUTROPHILS % 85.2 % (36.0-66.0); PLATELET COUNT, AUTOMATED 342 10^3/uL (150-450); RED BLOOD COUNT 4.86 10^6/uL (4.00-5.40); WHITE BLOOD COUNT 18.1 10^3/uL (4.0-10.0)
[2024-06-25 03:16] LABS: HCG, SERUM QUALITATIVE NEGATIVE (NEGATIVE)
[2024-06-25 03:18] LABS: LIPASE 36 U/L (12-53)
[2024-06-25 03:20] LABS: ALBUMIN 3.5 G/DL (3.2-5.2); ALKALINE PHOSPHATASE 79 U/L (46-116); ALT/SGPT 18 U/L (7.0-40); AST/SGOT 17 U/L (<34); BILIRUBIN,DIRECT < 0.1 MG/DL (<0.4); BILIRUBIN,TOTAL 0.4 MG/DL (0.3-1.2); BLOOD UREA NITROGEN 15 MG/DL (9-23); CALCIUM LEVEL 9.5 MG/DL (8.5-10.1); CARBON DIOXIDE LEVEL 26 MMOL/L (20-31); CHLORIDE LEVEL 103 MMOL/L (98-107); CREATININE FOR GFR 0.82 MG/DL (0.55-1.30); GLOMERULAR FILTRATION RATE > 60.0 (>60); GLUCOSE, FASTING 129 MG/DL (60-100); POTASSIUM SERUM 4.2 MMOL/L (3.5-5.1); SODIUM LEVEL 136 MMOL/L (136-145); TOTAL PROTEIN 7.8 G/DL (5.7-8.2)
[2024-06-25 03:26] VITALS: BP 157/85; TEMP 96.4; O2SAT 97
[2024-06-25] MEDS: NS 1,000 ML IV ONE (04:30)
[2024-06-25] MEDS ORDERED: ISOVUE-370 76% 100ML VIAL As Ordered ONE (04:34)
[2024-06-25] MEDS: ONDANSETRON 4MG 2ML VIAL IV ONE (04:39)
[2024-06-25] MEDS: KETOROLAC 30 MG/ML 1ML VIAL IV ONE (04:39)
[2024-06-25] MEDS ORDERED: NAPR-837 PO (05:46)
== END 2024-06-25 06:19 | disposition home or self-care (01) ==
LOC: M ED 22:46
DX: A09 Infectious gastroenteritis and colitis, unspecified (principal); K76.0 Fatty (change of) liver, not elsewhere classified; I10 Essential (primary) hypertension; G47.33 Obstructive sleep apnea (adult) (pediatric); K57.30 Diverticulosis of large intestine without perforation or abscess without bleeding; Z88.2 Allergy status to sulfonamides; Z79.811 Long term (current) use of aromatase inhibitors; Z79.899 Other long term (current) drug therapy; Z79.52 Long term (current) use of systemic steroids
CPT/HCPCS: 74177; 80048; 80076; 81001; 83690; 84703; 85025; 96374; 99283; J1885; J2405; Q9967

== ENCOUNTER → 2024-06-28 | Outpatient (CLI) | payer OTHER | LOC: M PLALAB 07:51 | PROVIDERS: ATTEND Internal Medicine Gastroenterology | DX: D84.1 Defects in the complement system (principal) ==

== ENCOUNTER → 2024-07-08 | Outpatient (CLI) | payer OTHER | LOC: M RAD 16:25 | PROVIDERS: ATTEND Registered Nurse | DX: Z01.810 Encounter for preprocedural cardiovascular examination (principal); E66.01 Morbid (severe) obesity due to excess calories ==

== ENCOUNTER → 2024-07-24 | Outpatient (CLI) | payer OTHER | LOC: M SLEEP 20:00 | PROVIDERS: ATTEND Nurse Practitioner Family | DX: G47.33 Obstructive sleep apnea (adult) (pediatric) (principal) ==

== ENCOUNTER → 2024-08-14 | Outpatient (REF) | payer OTHER | LOC: M LAB REF 16:19 | PROVIDERS: ATTEND Physician Assistant | DX: J02.9 Acute pharyngitis, unspecified (principal) ==

== ENCOUNTER → 2024-08-15 | Outpatient (CLI) | payer OTHER ==
[2024-08-15 14:30] LABS: HEMOGLOBIN A1c 5.3 % (4.0-6.0)
[2024-08-19 16:36] LABS: TESTOSTERONE FREE (DIRECT) 0.8 pg/mL (0.1-6.4)
== END ==
LOC: M PLALAB 10:45
PROVIDERS: ATTEND Nurse Practitioner Family
DX: L68.0 Hirsutism (principal)

== ENCOUNTER → 2024-08-23 | Outpatient (CLI) | payer OTHER | LOC: M WHC 11:45 | PROVIDERS: ATTEND Nurse Practitioner Family | DX: N83.202 Unspecified ovarian cyst, left side (principal) ==

== ENCOUNTER → 2025-01-28 | Outpatient (CLI) | payer OTHER ==
[~2025-01-28] MED LIST changes: +LEVOTAB10; +VANC125C13 PO; -VANC125C3 PO
== END ==
LOC: M SLEEP HO 13:10
PROVIDERS: ATTEND Physician Assistant
DX: R06.83 Snoring (principal)

== ENCOUNTER → 2025-04-01 | Outpatient (CLI) | payer OTHER, MEDICAID | LOC: M SOG 06:57 | PROVIDERS: ATTEND Physician Assistant | DX: M25.561 Pain in right knee (principal) ==

== ENCOUNTER → 2025-05-28 | Outpatient (REF) | payer OTHER, MEDICAID | LOC: M LAB REF 16:39 | PROVIDERS: ATTEND Physician Assistant | DX: J02.9 Acute pharyngitis, unspecified (principal) ==

== ENCOUNTER → 2025-06-04 | Outpatient (CLI) | payer OTHER | LOC: M SOG 07:10 | PROVIDERS: ATTEND Neuromusculoskeletal Medicine, Sports Medicine | DX: M79.605 Pain in left leg (principal); Z53.9 Procedure and treatment not carried out, unspecified reason ==

== ENCOUNTER → 2025-06-11 | Outpatient (CLI) | payer OTHER ==
[2025-06-11 11:19] LABS: BASO # 0.0 10^3/uL (0.0-0.2); BASO % 0.7 % (0.0-1.0); EOS # 0.1 10^3/uL (0.0-0.5); EOS % 2.6 % (0.0-3.0); LYMPH # 1.7 10^3/uL (1.5-5.0); LYMPH % 32.3 % (24.0-44.0); MONO # 0.4 10^3/uL (0.0-0.8); MONO % 6.5 % (2.0-8.0); NEUTROPHILS # 3.1 10^3/uL (1.5-8.5); NEUTROPHILS % 57.7 % (36.0-66.0); PLATELET COUNT, AUTOMATED 304 10^3/uL (150-450)
[2025-06-11 11:47] LABS: ALT/SGPT 13 U/L (7.0-40); AST/SGOT 18 U/L (<34); CALCIUM LEVEL 9.1 MG/DL (8.5-10.1); CARBON DIOXIDE LEVEL 30 MMOL/L (20-31); CHLORIDE LEVEL 103 MMOL/L (98-107); CREATININE FOR GFR 0.82 MG/DL (0.55-1.30); GLOMERULAR FILTRATION RATE > 90.0 (>60); IRON (FE) 28 UG/DL (50-170); PERCENT SATURATION 7.6 % (13.2-45.0); POTASSIUM SERUM 3.7 MMOL/L (3.5-5.1); SODIUM LEVEL 143 MMOL/L (136-145)
[2025-06-11 11:48] LABS: TOTAL 25(OH) VITAMIN D 33.7 NG/ML (20.0-100.0); VITAMIN B12 LEVEL 622 PG/ML (211-911)
== END ==
LOC: M PLALAB 08:20
PROVIDERS: ATTEND Surgery
DX: K91.2 Postsurgical malabsorption, not elsewhere classified (principal); E66.9 Obesity, unspecified

== ENCOUNTER → 2025-06-27 | Outpatient (CLI) | payer OTHER | LOC: M SOG 14:32 | PROVIDERS: ATTEND Physician Assistant | DX: M25.562 Pain in left knee (principal) ==

== ENCOUNTER 2025-07-22 11:56 | Outpatient (CLI) | payer OTHER ==
[~2025-07-22] VITALS: Ht 172.7 cm; Wt 87.7 kg
[~2025-07-22 11:56] MED LIST changes: +ALBUTEROL SULFATE 2.5 MG/0.5 ML INH CONCENTRATE NEB SOLN INH PRN; +EPINEPHrine INJ 1 MG/ML 1ML AMP IM PRN; +diphenhydrAMINE 50 MG/ML VIAL IV PRN
[2025-07-22 12:00] VITALS: BP 151/85; O2SAT 100
[2025-07-22] MEDS: IRON SUCROSE 300 MG in NS 250 ML OVER 90 MIN. IV ONE (12:48)
[2025-07-22 14:45] VITALS: BP 140/83; O2SAT 100
== END 2025-07-22 14:50 | disposition home or self-care (01) ==
LOC: M INFU 11:56
PROVIDERS: ATTEND Internal Medicine Medical Oncology
DX: D50.9 Iron deficiency anemia, unspecified (principal); Z88.2 Allergy status to sulfonamides
CPT/HCPCS: 96365; 96366; J1756

== ENCOUNTER 2025-07-29 11:32 | Outpatient (CLI) | payer OTHER ==
[~2025-07-29] VITALS: Ht 172.7 cm; Wt 87.7 kg
[2025-07-29 12:00] VITALS: BP 131/86; O2SAT 100
[2025-07-29] MEDS: IRON SUCROSE 300 MG in NS 250 ML OVER 90 MIN. IV ONE (12:51)
[2025-07-29 14:35] VITALS: BP 140/97; O2SAT 100
== END 2025-07-29 14:40 ==
LOC: M INFU 11:32
PROVIDERS: ATTEND Internal Medicine Medical Oncology
DX: D50.9 Iron deficiency anemia, unspecified (principal); Z88.2 Allergy status to sulfonamides
CPT/HCPCS: 96365; 96366; J1756

== ENCOUNTER 2025-08-05 11:36 | Outpatient (CLI) | payer OTHER ==
[~2025-08-05] VITALS: Ht 172.7 cm; Wt 87.7 kg
[2025-08-05 12:00] VITALS: BP 148/83; O2SAT 98
[2025-08-05] MEDS: IRON SUCROSE 300 MG in NS 250 ML IV ONE (12:17)
[2025-08-05 13:58] VITALS: BP 136/87; O2SAT 98
== END 2025-08-05 14:00 ==
LOC: M INFU 11:36
PROVIDERS: ATTEND Internal Medicine Medical Oncology
DX: D50.9 Iron deficiency anemia, unspecified (principal); Z88.2 Allergy status to sulfonamides
CPT/HCPCS: 96365; 96366; J1756

== ENCOUNTER → 2025-08-12 | Outpatient (REF) | payer OTHER ==
[~2025-08-12] MED LIST changes: -ALBUTEROL SULFATE 2.5 MG/0.5 ML INH CONCENTRATE NEB SOLN INH PRN; -EPINEPHrine INJ 1 MG/ML 1ML AMP IM PRN; -diphenhydrAMINE 50 MG/ML VIAL IV PRN
== END ==
LOC: M LAB REF 11:55
PROVIDERS: ATTEND Physician Assistant Medical
DX: B34.9 Viral infection, unspecified (principal)

== ENCOUNTER 2025-08-19 12:06 | Outpatient (CLI) | payer OTHER ==
[~2025-08-19] VITALS: Ht 172.7 cm; Wt 85.9 kg
[2025-08-19 11:55] VITALS: BP 140/88; O2SAT 100
[~2025-08-19 12:06] MED LIST changes: +ALBUTEROL SULFATE 2.5 MG/0.5 ML INH CONCENTRATE NEB SOLN INH PRN; +EPINEPHrine INJ 1 MG/ML 1ML AMP IM PRN; +diphenhydrAMINE 50 MG/ML VIAL IV PRN
[2025-08-19] MEDS: IRON SUCROSE 300 MG in NS 250 ML OVER 90 MIN. IV ONE (12:13)
[2025-08-19 13:50] VITALS: BP 122/76; O2SAT 100
== END 2025-08-19 13:50 ==
LOC: M INFU 12:06
PROVIDERS: ATTEND Internal Medicine Medical Oncology
DX: D50.9 Iron deficiency anemia, unspecified (principal); Z88.2 Allergy status to sulfonamides
CPT/HCPCS: 96365; 96366; J1756

== ENCOUNTER 2025-08-27 12:05 | Outpatient (CLI) | payer OTHER ==
[~2025-08-27] VITALS: Ht 172.7 cm; Wt 130.0 kg
[2025-08-27 11:55] VITALS: BP 151/81; O2SAT 100
[~2025-08-27 12:05] MED LIST changes: +IRON SUCROSE 300 MG in NS 250 ML OVER 90 MIN. IV ONE
[2025-08-27] MEDS: IRON SUCROSE 300 MG in NS 250 ML OVER 90 MIN. IV ONE (12:17)
== END 2025-08-27 13:55 ==
LOC: M INFU 12:05
PROVIDERS: ATTEND Internal Medicine Medical Oncology
DX: D50.9 Iron deficiency anemia, unspecified (principal); Z88.2 Allergy status to sulfonamides
CPT/HCPCS: 96365; J1756

== ENCOUNTER → 2025-10-15 | Outpatient (CLI) | payer OTHER ==
[~2025-10-15] MED LIST changes: -ALBUTEROL SULFATE 2.5 MG/0.5 ML INH CONCENTRATE NEB SOLN INH PRN; -EPINEPHrine INJ 1 MG/ML 1ML AMP IM PRN; -IRON SUCROSE 300 MG in NS 250 ML OVER 90 MIN. IV ONE; -diphenhydrAMINE 50 MG/ML VIAL IV PRN
[2025-10-15 11:12] LABS: BASO # 0.0 10^3/uL (0.0-0.2); BASO % 0.6 % (0.0-1.0); EOS # 0.1 10^3/uL (0.0-0.5); EOS % 2.6 % (0.0-3.0); LYMPH # 1.9 10^3/uL (1.5-5.0); LYMPH % 35.2 % (24.0-44.0); MONO # 0.3 10^3/uL (0.0-0.8); MONO % 6.4 % (2.0-8.0); NEUTROPHILS # 2.9 10^3/uL (1.5-8.5); NEUTROPHILS % 55.0 % (36.0-66.0); PLATELET COUNT, AUTOMATED 276 10^3/uL (150-450)
[2025-10-15 11:51] LABS: IRON (FE) 120 UG/DL (50-170)
[2025-10-15 11:52] LABS: ALT/SGPT 14 U/L (7.0-40); AST/SGOT 18 U/L (<34); CALCIUM LEVEL 8.6 MG/DL (8.5-10.1); CARBON DIOXIDE LEVEL 30 MMOL/L (20-31); CHLORIDE LEVEL 105 MMOL/L (98-107); CREATININE FOR GFR 0.77 MG/DL (0.55-1.30); GLOMERULAR FILTRATION RATE > 90.0 (>60); PERCENT SATURATION 43.6 % (13.2-45.0); POTASSIUM SERUM 3.7 MMOL/L (3.5-5.1); SODIUM LEVEL 145 MMOL/L (136-145)
[2025-10-15 11:54] LABS: TOTAL 25(OH) VITAMIN D 27.9 NG/ML (20.0-100.0); VITAMIN B12 LEVEL 484 PG/ML (211-911)
== END ==
LOC: M PLALAB 07:51
PROVIDERS: ATTEND Registered Nurse
DX: E66.9 Obesity, unspecified (principal); D50.8 Other iron deficiency anemias